=== PATIENT | male | born 1995 ===

== ENCOUNTER 2019-05-09 22:11 | Emergency (ER) | payer OTHER ==
[~2019-05-09] VITALS: Ht 172.7 cm; Wt 108.0 kg
== END 2019-05-10 | disposition left against medical advice (07) ==
LOC: ER 22:11
DX: R11.2 Nausea with vomiting, unspecified (principal); R10.84 Generalized abdominal pain; E86.0 Dehydration; T40.5X5A Adverse effect of cocaine, initial encounter